=== PATIENT | female | born 1945 | race Native Hawaiian/Other Pacific Islander ===

== ENCOUNTER 2022-09-29 20:56 | Emergency (ER) | payer OTHER ==
[~2022-09-29] VITALS: Ht 165.1 cm; Wt 44.5 kg
[2022-09-29 20:56] VITALS: BP 141/77; TEMP 97.3
[2022-09-29 21:31] LABS: PLATELET COUNT 191 K/uL (152-353)
[2022-09-29 21:39] LABS: POTASSIUM 4.5 mmol/L (3.6-5.2)
[2022-09-30] MEDS ORDERED: STOOL SOFT50 MG/5 ML PO (09:19)
[2022-09-30] MEDS ORDERED: LEVE250T PO (09:20)
[2022-09-30] MEDS ORDERED: GABA100C2 PO (09:21)
[2022-09-30] MEDS ORDERED: TYLENOL325 MG PO (09:23)
[2022-09-30] MEDS ORDERED: AMLODIPINE BESYLATE PO (09:24)
[2022-09-30] MEDS ORDERED: ALBUSOL INH (09:27)
[2022-09-30] MEDS ORDERED: OLANZAPINE2.5 MG PO (09:29)
[2022-09-30] MEDS ORDERED: ASPIRIN/ENTERIC81 MG PO (09:30)
[2022-09-30] MEDS ORDERED: FLINTSTONE1 PO (09:31)
[2022-09-30] MEDS ORDERED: ROPINIROLE HY0.25 MG PO (09:33)
[2022-09-30] MEDS ORDERED: HALO5INJ3 IM (09:36)
[2022-09-30] MEDS ORDERED: TRAZ100T PO (09:37)
[2022-09-30] MEDS ORDERED: ZYPREXA ZYDI5 MG PO (09:38)
[2022-09-30] MEDS ORDERED: BOOST PLUS PO (09:41)
== END 2022-09-29 22:15 | disposition still patient (30) ==
LOC: ED 20:56
PROVIDERS: Family Medicine
DX: R45.6 Violent behavior (principal); Z02.79 Encounter for issue of other medical certificate
CPT/HCPCS: 36415; 80053; 85027; 87635; 99283; U0003